=== PATIENT | female | born 1935 | race Hispanic/Latino ===

== ENCOUNTER 2018-12-11 07:08 | Day surgery (SDC) | payer OTHER ==
[2018-12-08 09:51] LABS: APPEARANCE,URINE CLEAR (CLEAR); BASOPHILS % (AUTO) 1.3 % (0.0-5.0); BILIRUBIN,URINE NEGATIVE (NEGATIVE); COLOR,URINE YELLOW (YELLOW); EOSINOPHILS % (AUTO) 3.7 % (0.0-8.0); GLUCOSE, URINE (UA) NEGATIVE (NEGATIVE); HEMATOCRIT 38.2 % (36-48); KETONES,URINE NEGATIVE (NEGATIVE); LEUKOCYTE ESTERASE ,URINE TRACE (NEGATIVE); LYMPHOCYTES % (AUTO) 25.9 % (21.0-51.0); MEAN CORPUSCULAR HGB CONC 32.6 g/dL (32.0-36.0); MONOCYTES % (AUTO) 5.7 % (3.0-13.0); NEUTROPHILS % (AUTO) 63.4 % (40.0-77.0); NITRATE,URINE NEGATIVE (NEGATIVE); OCCULT BLOOD,URINE TRACE-INTACT (NEGATIVE); PH,URINE 5.5 (5.0-8.0); PLATELET COUNT (AUTO) 181 K/uL (130-400); PROTEIN,URINE NEGATIVE (NEGATIVE); RED BLOOD CELL COUNT(AUTO) 4.29 MIL/uL (4.00-5.50); RED CELL DISTRIBUTION WIDTH 13.8 % (11.0-15.5); UROBILINOGEN,URINE 0.2 mg/dL (0.2-1.0); WHITE BLOOD COUNT (AUTO) 6.4 K/uL (4.8-10.8)
[2018-12-08 09:57] LABS: CREATININE 0.7 mg/dL (0.5-1.5); POTASSIUM 4.5 mmol/L (3.5-5.1)
[2018-12-08 10:00] LABS: BACTERIA,URINE Rare /HPF (None Seen); RBC,URINE 0-1 /HPF (0-1); SQUAMOUS EPITHELIAL CELL,UR Rare /HPF (0-2); WBC,URINE 0-1 /HPF (0-1)
[2018-12-08 10:10] VITALS: BP 179/67
--- NOTE | 2018-12-10 13:52 | NUR ---
Faxed UA results to Doctor [place] office (Ellie confirmed she received fax) pending call back and orders if any. H & P will be send per Ellie.
--- NOTE | 2018-12-10 14:34 | NUR ---
NO NEW ORDERS FOR UA , TRACE OF BLOOD,TRACE OF LEUKEST, BATERIA RARE AND SQUAM EPI PER OFFICE.
--- NOTE | 2018-12-10 14:49 | NUR ---
LATE ENTRY PT HERE FOR PREOP. WITH DAUGHTER. DAUGHTER STATES PT HAS DEMENTIA. 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 PT UNABLE TO ANSWER ANY QUESTIONS IN REGARDS TO MEDICAL HX. CONFUSED.
[2018-12-11] VITALS (12 sets, daily range): BP systolic 108–172; BP diastolic 52–76
[~2018-12-11] VITALS: Ht 160 cm; Wt 55.1 kg
[~2018-12-11 07:08] MED LIST: DONE10TA43 PO; LISI-613 PO; SIMV10TA6 PO; TRAZADONE PO
--- NOTE | 2018-12-11 08:24 | NUR ---
ORIENT pt knows name ,date of ,unaware of day of week ,month etc knows she is in the hospital. Addendum: 12/11/18 at 0830 by JAROD ESPARZA RN RN Amended: Links added.
[2018-12-11] MEDS ORDERED: PROPOFOL 10 MG/ML 20ML VIAL IV ONE (08:26)
[2018-12-11] MEDS ORDERED: LIDOCAINE PF 2% 5ML ABBOJECT ONE (08:26)
[2018-12-11] MEDS ORDERED: MIDAZOLAM HCL 1 MG/ML 2ML VIAL ONE (08:26)
[2018-12-11] MEDS ORDERED: ROCURONIUM 10MG/1ML SYR 10 MG/ML ML ONE (08:28)
[2018-12-11] MEDS: LACTATED RINGERS 1000ML 1,000 ML IV SCH ×2 (08:29→08:38)
[2018-12-11] MEDS ORDERED: FENTANYL CITRATE PF 50 MCG/1 ML 2ML VIAL ONE (08:38)
[2018-12-11] MEDS ORDERED: HEPARIN SODIUM 1000UNIT/ML 10ML VIAL ONE (08:41)
[2018-12-11] MEDS ORDERED: ONDANSETRON HCL 4 MG/2 ML VIAL ONE (08:50)
[2018-12-11] MEDS ORDERED: NEOSTIGMINE 5MG/5ML SYR IV ONE (09:11)
[2018-12-11] MEDS ORDERED: METOCLOPRAMIDE 10 MG/2 ML VIAL ONE (09:12)
[2018-12-11] MEDS ORDERED: GLYCOPYRROLATE 1 MG/5 ML SYRINGE ONE (09:12)
[2018-12-11] MEDS ORDERED: HYDRALAZINE HCL 20 MG/ML VIAL ONE (09:47)
[2018-12-11] MEDS ORDERED: KETOROLAC TROMETHAMINE 15MG/ML ONE (10:30)
== END 2018-12-11 11:14 | disposition home or self-care (01) ==
LOC: DAH 07:08
PROVIDERS: ATTEND Surgery
DX: K80.10 Calculus of gallbladder with chronic cholecystitis without obstruction (principal); E78.5 Hyperlipidemia, unspecified; I10 Essential (primary) hypertension; Z79.899 Other long term (current) drug therapy; Z80.9 Family history of malignant neoplasm, unspecified; Z98.890 Other specified postprocedural states; F03.90 Unspecified dementia, unspecified severity, without behavioral disturbance, psychotic disturbance, mood disturbance, and anxiety
CPT/HCPCS: 36415; 47562; 80048; 81001; 85025; 93005; A4450; C1769 ×4; J0360; J1644; J1885; J2001; J2405; J2704; J2710; J2765; J3010; J3490; J7030; J7120; J2250

== ENCOUNTER → 2021-03-20 | Outpatient (CLI) | payer OTHER ==
[~2021-03-20] MED LIST changes: -LISI-613 PO; +LISI20TA24 PO; -SIMV10TA6 PO; +SIMV10TA97 PO
== END | disposition home or self-care (01) ==
LOC: RAH 15:13
PROVIDERS: ATTEND Family Medicine
DX: R10.32 Left lower quadrant pain (principal)
CPT/HCPCS: 74018